=== PATIENT | male | born 1950 | race Caucasian/White ===

== ENCOUNTER 2018-12-04 08:01 | Outpatient (CLI) | payer MEDICARE, OTHER ==
[~2018-12-04 08:01] MED LIST: ECULIZUMAB IV PRN; NORMAL SALINE 10 ML SDV (AFTER EACH USE) IV PRN; NORMAL SALINE 250 ML IV PRN; NORMAL SALINE IV PRN
[2018-12-04 08:25] VITALS: BP 173/77
[2018-12-04] MEDS ORDERED: NORMAL SALINE 10 ML SDV (SCHEDULED) IV SCH (10:00)
== END 2018-12-04 11:16 | disposition home or self-care (01) ==
LOC: II 08:01 → 5TH 08:24 → II 11:16
PROVIDERS: ATTEND Internal Medicine Hematology & Oncology
PROC: 3E0430M Introduction of Antineoplastic, Monoclonal Antibody, into Central Vein, Percutaneous Approach (ICD-10-PCS; principal; 2018-12-04)
DX: G70.01 Myasthenia gravis with (acute) exacerbation (principal)
CPT/HCPCS: 96413; J7050; J1642; J1300

== ENCOUNTER 2018-12-11 08:18 | Outpatient (CLI) | payer MEDICARE, OTHER ==
[~2018-12-11 08:18] MED LIST changes: -NORMAL SALINE 10 ML SDV (AFTER EACH USE) IV PRN
[2018-12-11 10:10] VITALS: BP 146/72
[2018-12-11] MEDS ORDERED: NORMAL SALINE 10 ML SDV (AFTER EACH USE) IV PRN (11:30)
[2018-12-11] MEDS ORDERED: NORMAL SALINE 10 ML SDV (SCHEDULED) IV SCH (22:00)
== END 2018-12-11 11:18 | disposition home or self-care (01) ==
LOC: II 08:18 → 5TH 08:20 → II 11:18
PROVIDERS: ATTEND Internal Medicine Hematology & Oncology
DX: G70.01 Myasthenia gravis with (acute) exacerbation (principal)
CPT/HCPCS: 96413; J7050; J1642; J1300